=== PATIENT | male | born 1950 | race Caucasian/White ===

== ENCOUNTER → 2016-12-15 | Outpatient (CLI) | payer BC ==
--- NOTE | 2016-12-15 15:26 | US ---
EXAMINATION TYPE: US thyroid st tissue head/neck DATE OF EXAM: 12/15/2016 COMPARISON: US CLINICAL HISTORY: E04.1 Lft thyroid nodule. Enlarged thyroid, history of thyroid FNA GLAND SIZE: Right Lobe: 3.7 x 1.9 x 1.9 cm Overall Parenchyma: heterogenous Left Lobe: 4.0 x 1.5 x 1.4 cm Overall Parenchyma: heterogeneous Isthmus Thickness: 0.5 cm NODULES RIGHT: # of nodules measured on right: 0 LEFT: # of nodules measured on left: 1 1. 1.3 X 1.1 x 0.6 cm hyperechoic solid nodule at the mid pole with well-defined margins. This nodu le is taller than wide and shows intranodular vascularity. Prior size: 1.2 x 1.2 x 0.9 cm ISTHMUS: # of nodules measured in the isthmus: 0 Bilateral neck scanned, no evidence of lymphadenopathy. Slightly heterogeneous thyroid with left lobe nodule described above. IMPRESSION: 1. Hyperechoic nodule left lobe thyroid. This was present previously.
== END | disposition home or self-care (01) ==
LOC: RADUSWWP 12:13
PROVIDERS: ATTEND Otolaryngology
DX: E04.1 Nontoxic single thyroid nodule (principal)
CPT/HCPCS: 76536